=== PATIENT | female | born 1995 | race Caucasian/White ===

== ENCOUNTER → 2018-01-22 | Outpatient (CLI) | payer OTHER ==
[~2018-01-22] MED LIST: NONE PER PT; SILVER NITRATE STICK TP ONE
== END ==
LOC: STAR 13:57
PROVIDERS: ATTEND Obstetrics & Gynecology Gynecology
DX: Z02.9 Encounter for administrative examinations, unspecified (principal)

== ENCOUNTER 2018-01-26 09:41 | Day surgery (SDC) | payer OTHER ==
[~2018-01-26] VITALS: Ht 172.7 cm; Wt 87.5 kg
[~2018-01-26 09:41] MED LIST changes: -SILVER NITRATE STICK TP ONE
[2018-01-26] MEDS ORDERED: LACTATED RINGERS 1,000 ML IV SCH (10:34)
[2018-01-26 10:35] VITALS: BP 112/78
[2018-01-26 10:44] LABS: HCG UR SG 1.018 (1.003-1.030)
[2018-01-26] MEDS ORDERED: MIDAZOLAM 1 MG/ML, 2ML ONE (11:05)
[2018-01-26] MEDS ORDERED: FENTANYL PF 100 MCG/2ML ONE (11:05)
[2018-01-26] MEDS ORDERED: EPINEPHRINE 1 MG/ML, 1ML ONE (11:06)
[2018-01-26] MEDS ORDERED: BUPIVACAINE/PF 0.25% ONE (11:06)
[2018-01-26] MEDS ORDERED: GABAPENTIN 300 MG CAPSULE ONE (11:15)
[2018-01-26] MEDS ORDERED: FAMOTIDINE 20 MG TABLET ONE (11:16)
[2018-01-26] MEDS ORDERED: METOCLOPRAMIDE 10MG TABLET ONE (11:16)
[2018-01-26] MEDS ORDERED: ACETAMINOPHEN 500 MG TABLET ONE (11:17)
[2018-01-26] MEDS ORDERED: GLYCOPYRROLATE 0.2MG/1ML, 5ML ONE (11:29)
[2018-01-26] MEDS ORDERED: ROCURONIUM 10MG/ML,5ML ONE (11:29)
[2018-01-26] MEDS ORDERED: SUCCINYLCHOLINE 20 MG/ML, 10ML ONE (11:29)
[2018-01-26] MEDS ORDERED: CEFAZOLIN 1,000 MG ONE (11:29)
[2018-01-26] MEDS ORDERED: NEOSTIGMINE 1 MG/ML, 10ML ONE (11:29)
[2018-01-26] MEDS ORDERED: DEXAMETHASONE 4 MG/ML, 1ML ONE (11:29)
[2018-01-26] MEDS ORDERED: PROPOFOL 10 MG/ML, 20ML ONE (11:29)
[2018-01-26] MEDS ORDERED: ONDANSETRON 2MG/ML, 2ML ONE (11:29)
[2018-01-26] MEDS ORDERED: KETOROLAC 30 MG/1 ML ONE (11:29)
[2018-01-26] MEDS ORDERED: ACETAMINOPHEN 500 MG TABLET PO ONE (11:30)
[2018-01-26] MEDS ORDERED: GABAPENTIN 300 MG CAPSULE PO ONE (11:30)
[2018-01-26] MEDS ORDERED: METOCLOPRAMIDE 10MG TABLET PO ONE (11:30)
[2018-01-26] MEDS ORDERED: FAMOTIDINE 20 MG TABLET PO ONE (11:30)
[2018-01-26] MEDS ORDERED: SILVER NITRATE STICK TP ONE (12:30)
[2018-01-26] MEDS ORDERED: morphine SULFATE 10 MG/ML, 1ML IV PRN (13:00)
[2018-01-26] MEDS ORDERED: ALBUTEROL SULFATE 2.5 MG/3 ML NPPB PRN (13:00)
[2018-01-26] MEDS ORDERED: OXYcodone 5 MG/5 ML ORAL.SOL UDC PO PRN (13:00)
[2018-01-26] MEDS ORDERED: FENTANYL PF 100 MCG/2ML IV PRN (13:00)
[2018-01-26] MEDS ORDERED: PROMETHAZINE 25 MG/ML, 1ML IV PRN (13:00)
[2018-01-26] MEDS ORDERED: MEPERIDINE/PF 25MG/0.5ML IVPush PRN (13:00)
[2018-01-26] MEDS ORDERED: MEPERIDINE/PF 25MG/0.5ML ONE (13:01)
== END 2018-01-26 15:35 ==
LOC: OUT 09:41
PROVIDERS: ATTEND Obstetrics & Gynecology Gynecology
DX: N94.6 Dysmenorrhea, unspecified (principal); N94.10 Unspecified dyspareunia; G43.909 Migraine, unspecified, not intractable, without status migrainosus; F32.9 Major depressive disorder, single episode, unspecified; F41.9 Anxiety disorder, unspecified; Z98.890 Other specified postprocedural states
CPT/HCPCS: 58662; 81025; 88305; J0171; J0330; J0690; J1100; J1885; J2250; J2405; J2704; J2710; J3010; J3490; J7120

== ENCOUNTER 2019-09-21 20:05 | Outpatient (CLI) | payer OTHER ==
[~2019-09-21] VITALS: Ht 172.7 cm; Wt 100.0 kg
[2019-09-21 20:23] VITALS: BP 126/76
[2019-09-21] MEDS ORDERED: PREN1TAB60 PO (20:42)
== END 2019-09-21 21:05 | disposition home or self-care (01) ==
LOC: LDOP 20:05
PROVIDERS: ATTEND Obstetrics & Gynecology
DX: O42.913 Preterm premature rupture of membranes, unspecified as to length of time between rupture and onset of labor, third trimester (principal); Z3A.39 39 weeks gestation of pregnancy
CPT/HCPCS: 59025; 89060; 99211; G0463; Q0114

== ENCOUNTER 2019-09-27 14:09 | Outpatient (CLI) | payer OTHER ==
[~2019-09-27] VITALS: Ht 172.7 cm; Wt 102.3 kg
[~2019-09-27 14:09] MED LIST changes: +PREN1TAB60 PO
[2019-09-27 14:21] VITALS: BP 124/82
[2019-09-27 15:09] LABS: ALBUMIN 2.6 g/dL (3.4-5.0); ANION GAP 5 mmol/L (5-15); CALCIUM 8.8 mg/dL (8.5-10.1); CHLORIDE 107 mmol/L (98-107)
[2019-09-27 15:10] LABS: BASOPHILS # (AUTO) 0.02 x10^3/uL (0-0.1); BASOPHILS % (AUTO) 0 % (0-1); EOSINOPHILS # (AUTO) 0.13 x10^3/uL (0-0.4); EOSINOPHILS % (AUTO) 1 % (1-7); LYMPHOCYTES # (AUTO) 1.92 x10^3/uL (1-3.4); LYMPHOCYTES % (AUTO) 18 % (22-44); MD NO; MEAN CORPUSCULAR HEMOGLOBIN 28.9 pg (27.0-34.8); MEAN CORPUSCULAR HGB CONC 32.9 g/dL (32.4-35.8); MEAN PLATELET VOLUME 7.5 fL (7.4-10.4); MONOCYTES # (AUTO) 0.58 x10^3/uL (0.2-0.8); MONOCYTES % (AUTO) 5 % (2-9); NEUTROPHILS # (AUTO) 8.19 x10^3/uL (1.8-6.8); NEUTROPHILS % (AUTO) 76 % (42-75); PLATELET COUNT 296 x10^3/uL (130-400); RED BLOOD COUNT 3.94 x10^6/uL (3.82-5.3); RED CELL DISTRIBUTION WIDTH 15.2 % (9.6-15.2)
[2019-09-27 15:15] LABS: ALANINE AMINOTRANSFERASE 11 U/L (12-78); ALKALINE PHOSPHATASE 192 U/L (45-117); BILIRUBIN,TOTAL 0.4 mg/dL (0.2-1.0); CREATININE 0.59 mg/dL (0.55-1.02); TOTAL PROTEIN 6.4 g/dL (6.4-8.2)
[2019-09-27 15:49] LABS: MICROSCOPIC INDICATED
[2019-09-27 16:11] LABS: CREATININE,URINE RANDOM 53.5 mg/dL
== END 2019-09-27 17:00 | disposition home or self-care (01) ==
LOC: LDOP 14:09
PROVIDERS: ATTEND Obstetrics & Gynecology
DX: O13.3 Gestational [pregnancy-induced] hypertension without significant proteinuria, third trimester (principal); Z3A.39 39 weeks gestation of pregnancy; E11.9 Type 2 diabetes mellitus without complications; Z88.0 Allergy status to penicillin
CPT/HCPCS: 36415; 59025; 80053; 81001; 82570; 84156; 84550; 85025; 99211; G0463

== ENCOUNTER 2019-10-02 05:30 | Inpatient (IN) ==
[~2019-10-02] VITALS: Ht 172.7 cm; Wt 102.0 kg
[2019-10-02 05:33] VITALS: BP 130/89
[2019-10-02] MEDS ORDERED: D5%-LACTATED RINGERS 1,000 ML IV SCH (07:32)
[2019-10-02] MEDS ORDERED: OXYTOCIN 30U/ 0.9% NaCL 500ML 500 ML IV ONE (07:32)
[2019-10-02] MEDS ORDERED: OXYTOCIN 30U/ 0.9% NaCL 500ML 500 ML IV PRN (07:32)
[2019-10-02] MEDS ORDERED: SODIUM CITRATE/CITRIC ACID 30 ML UDC PO PRN (08:00)
[2019-10-02] MEDS ORDERED: ONDANSETRON 2MG/ML, 2ML IVPush PRN (08:00)
[2019-10-02] MEDS ORDERED: METOCLOPRAMIDE 5 MG/ML, 2ML IVPush PRN (08:00)
[2019-10-02] MEDS ORDERED: TERBUTALINE 1 MG/ML, 1ML SQ PRN (08:00)
[2019-10-02] MEDS ORDERED: FENTANYL PF 100 MCG/2ML IVPush PRN (08:00)
[2019-10-02] MEDS ORDERED: TERBUTALINE 1 MG/ML, 1ML IVPush PRN (08:00)
[2019-10-02 08:06] LABS: BASOPHILS # (AUTO) 0.04 x10^3/uL (0-0.1); BASOPHILS % (AUTO) 0 % (0-1); EOSINOPHILS # (AUTO) 0.03 x10^3/uL (0-0.4); EOSINOPHILS % (AUTO) 0 % (1-7); LYMPHOCYTES # (AUTO) 2.78 x10^3/uL (1-3.4); LYMPHOCYTES % (AUTO) 23 % (22-44); MD NO; MEAN CORPUSCULAR HEMOGLOBIN 28.1 pg (27.0-34.8); MEAN CORPUSCULAR HGB CONC 32.4 g/dL (32.4-35.8); MEAN CORPUSCULAR VOLUME 86.9 fL (80-100); MONOCYTES # (AUTO) 0.54 x10^3/uL (0.2-0.8); MONOCYTES % (AUTO) 5 % (2-9); NEUTROPHILS # (AUTO) 8.67 x10^3/uL (1.8-6.8); NEUTROPHILS % (AUTO) 72 % (42-75); PLATELET COUNT 296 x10^3/uL (130-400); RED CELL DISTRIBUTION WIDTH 15.2 % (9.6-15.2)
[2019-10-02] MEDS ORDERED: OXYTOCIN 30U/ 0.9% NaCL 500ML 500 ML ONE ×2 (09:00→17:39)
[2019-10-02] MEDS: LACTATED RINGERS 1,000 ML IV SCH ×5 (09:10→23:39)
[2019-10-02 09:42] VITALS: BP 131/81
[2019-10-02] MEDS: FENTANYL/BUPIV./NS/PF 250 ML EPIDCONT SCH ×2 (10:12→23:38)
[2019-10-02] MEDS ORDERED: NEWBORN KIT ONE (10:22)
[2019-10-02] MEDS ORDERED: LIDOCAINE 1%, 20ML ONE (10:22)
[2019-10-02] MEDS ORDERED: MISOPROSTOL 200 MCG TABLET ONE (10:22)
[2019-10-02] MEDS ORDERED: LACTATED RINGERS 1,000 ML IVBOLUS PRN ×2 (10:30→15:00)
[2019-10-02] MEDS ORDERED: EPHEDRINE 50 MG/ML, 1ML IVPush PRN ×2 (10:30→15:00)
[2019-10-02] MEDS: FENTANYL PF 500 MCG, BUPIVACAINE/PF 0.5%, 30ML 62.5 ML in SODIUM CHLORIDE 0.9% 177.5 ML EPIDCONT SCH ×2 (10:30→23:39)
[2019-10-02] MEDS ORDERED: BUPIVACAINE 0.25% ONE ×2 (11:11→13:52)
[2019-10-02] MEDS ORDERED: FENTANYL/BUPIV./NS/PF 250 ML EPIDCONT ONE (11:35)
[2019-10-02] MEDS ORDERED: FENTANYL PF 100 MCG/2ML ONE (13:52)
[2019-10-02] MEDS ORDERED: FENTANYL/BUPIV./NS/PF 250 ML EPIDCONT SCH (14:40)
[2019-10-02] MEDS ORDERED: LACTATED RINGERS 1,000 ML IV SCH (14:40)
[2019-10-02] MEDS ORDERED: SIMETHICONE 80 MG CHEW TAB PO PRN (15:30)
[2019-10-02] MEDS ORDERED: MISOPROSTOL 200 MCG TABLET PR PRN (15:30)
[2019-10-02] MEDS ORDERED: IBUPROFEN 600 MG TABLET ONE (16:47)
[2019-10-02] MEDS: IBUPROFEN 600 MG TABLET PO PRN ×2 (16:48→23:28)
[2019-10-02] MEDS: OXYTOCIN 30U/ 0.9% NaCL 500ML 500 ML IV SCH (17:43)
[2019-10-02] MEDS ORDERED: OXYcodone/APAP 5/325MG TABLET ONE (17:50)
[2019-10-02] MEDS: OXYcodone/APAP 5/325MG TABLET PO PRN ×2 (17:51→23:33)
[2019-10-02 18:19] VITALS: BP 122/75
[2019-10-02 20:00] VITALS: BP 126/77
[2019-10-02] MEDS ORDERED: DIPH,PERTUSS(ACELL),TET VAC/PF NC IM-VACC ONE (21:30)
[2019-10-02] MEDS: DOCUSATE 100 MG CAPSULE PO PRN (23:27)
[2019-10-02 23:47] VITALS: BP 119/69
[2019-10-03] MEDS: OXYTOCIN 30U/ 0.9% NaCL 500ML 500 ML IV SCH ×3 (01:18→21:18)
[2019-10-03 04:30] VITALS: BP 105/68
[2019-10-03 05:32] LABS: BASOPHILS # (AUTO) 0.02 x10^3/uL (0-0.1); BASOPHILS % (AUTO) 0 % (0-1); EOSINOPHILS # (AUTO) 0.01 x10^3/uL (0-0.4); EOSINOPHILS % (AUTO) 0 % (1-7); LYMPHOCYTES % (AUTO) 19 % (22-44); MD NO; MEAN CORPUSCULAR HEMOGLOBIN 28.9 pg (27.0-34.8); MEAN CORPUSCULAR HGB CONC 32.9 g/dL (32.4-35.8); MEAN CORPUSCULAR VOLUME 88.1 fL (80-100); MEAN PLATELET VOLUME 7.3 fL (7.4-10.4); MONOCYTES # (AUTO) 0.73 x10^3/uL (0.2-0.8); MONOCYTES % (AUTO) 5 % (2-9); NEUTROPHILS # (AUTO) 10.12 x10^3/uL (1.8-6.8); NEUTROPHILS % (AUTO) 75 % (42-75); PLATELET COUNT 231 x10^3/uL (130-400); RED BLOOD COUNT 3.31 x10^6/uL (3.82-5.3); RED CELL DISTRIBUTION WIDTH 15.3 % (9.6-15.2)
[2019-10-03] MEDS: PRENATAL VIT/IRON/FA 1 EACH TABLET PO SCH (07:16)
[2019-10-03] MEDS: DOCUSATE 100 MG CAPSULE PO PRN ×2 (07:16→20:35)
[2019-10-03 07:20] VITALS: BP 127/79
[2019-10-03] MEDS: IBUPROFEN 600 MG TABLET PO PRN ×3 (07:45→20:35)
[2019-10-03] MEDS: OXYcodone/APAP 5/325MG TABLET PO PRN ×2 (07:46→20:35)
[2019-10-03 11:40] VITALS: BP 119/72
[2019-10-03 16:12] VITALS: BP 113/74
[2019-10-03 20:30] VITALS: BP 126/83
[2019-10-04] MEDS: LACTATED RINGERS 1,000 ML IV SCH (02:12)
[2019-10-04] MEDS: IBUPROFEN 600 MG TABLET PO PRN ×2 (04:18→12:17)
[2019-10-04] MEDS: OXYcodone/APAP 5/325MG TABLET PO PRN (04:18)
[2019-10-04] MEDS: OXYTOCIN 30U/ 0.9% NaCL 500ML 500 ML IV SCH (07:18)
[2019-10-04 07:30] VITALS: BP 130/84
[2019-10-04] MEDS: DOCUSATE 100 MG CAPSULE PO PRN (12:17)
[2019-10-04] MEDS: PRENATAL VIT/IRON/FA 1 EACH TABLET PO SCH (12:17)
[2019-10-04] MEDS ORDERED: OXYC-302 PO (12:44)
[2019-10-04] MEDS ORDERED: IBUP-1222 PO (12:44)
[2019-10-04] MEDS ORDERED: SERT50TA PO (12:46)
== END 2019-10-04 13:30 | disposition home or self-care (01) | DRG 807 ==
LOC: LDOP 05:30 → LDIP 07:32 → 2NW 18:02
PROVIDERS: ADMIT Obstetrics & Gynecology; ATTEND Obstetrics & Gynecology
PROC: 10E0XZZ Delivery of Products of Conception, External Approach (ICD-10-PCS; principal; 2019-10-02)
PROC: 0KQM0ZZ Repair Perineum Muscle, Open Approach (ICD-10-PCS; 2019-10-02)
PROC: 10907ZC Drainage of Amniotic Fluid, Therapeutic from Products of Conception, Via Natural or Artificial Opening (ICD-10-PCS; 2019-10-02)
PROC: 3E033VJ Introduction of Other Hormone into Peripheral Vein, Percutaneous Approach (ICD-10-PCS; 2019-10-02)
PROC: 3E0R3BZ Introduction of Anesthetic Agent into Spinal Canal, Percutaneous Approach (ICD-10-PCS; 2019-10-02)
PROC: 00HU33Z Insertion of Infusion Device into Spinal Canal, Percutaneous Approach (ICD-10-PCS; 2019-10-02)
DX: O41.03X0 Oligohydramnios, third trimester, not applicable or unspecified (principal); Z37.0 Single live birth; O70.1 Second degree perineal laceration during delivery; Z3A.40 40 weeks gestation of pregnancy
CPT/HCPCS: 36415; J7121; 76815; 85025; 86850; 86900; 90715; G0378; J2590; J3010; J7120

== ENCOUNTER → 2020-10-19 | Outpatient (CLI) | payer OTHER ==
[~2020-10-19] MED LIST changes: +IBUP-1222 PO; +OXYC-302 PO; +SERT50TA PO
== END | disposition home or self-care (01) ==
LOC: CFH 09:48
PROVIDERS: ATTEND Nurse Practitioner Women's Health
DX: N60.01 Solitary cyst of right breast (principal); N63.13 Unspecified lump in the right breast, lower outer quadrant
CPT/HCPCS: 76642